=== PATIENT | female | born 1990 | race Caucasian/White ===

== ENCOUNTER 2017-01-11 23:59 | Emergency (ER) | payer BC ==
[~2017-01-11] VITALS: Ht 167.6 cm; Wt 99.8 kg
[~2017-01-11 23:59] MED LIST: ROBITUSSIN-AC 160 ML PO; VIBRAMYCIN100 MG PO
[2017-01-12] MEDS ORDERED: CYCLOBENZAPRINE10 MG PO (01:15)
[2017-01-12] MEDS ORDERED: PREDNISONE50 MG PO (01:15)
== END 2017-01-12 01:42 | disposition home or self-care (01) ==
LOC: ED 23:59
DX: S33.5XXA Sprain of ligaments of lumbar spine, initial encounter (principal); F17.200 Nicotine dependence, unspecified, uncomplicated; X58.XXXA Exposure to other specified factors, initial encounter; Y93.9 Activity, unspecified; Y92.9 Unspecified place or not applicable; Y99.9 Unspecified external cause status

== ENCOUNTER 2017-03-03 22:46 | Emergency (ER) | payer BC ==
[~2017-03-03] VITALS: Ht 167.6 cm; Wt 104.3 kg
[~2017-03-03 22:46] MED LIST changes: +CYCLOBENZAPRINE10 MG PO; +PREDNISONE50 MG PO
[2017-03-04 01:05] LABS: BILIRUBIN NEGATIVE (NEGATIVE); BLOOD NEGATIVE (NEGATIVE); CLARITY SL CLOUDY (CLEAR); COLOR YELLOW (YELLOW); GLUCOSE NEGATIVE (NEGATIVE); KETONE NEGATIVE (NEGATIVE); LEUKO ESTERASE NEGATIVE (NEGATIVE); NITRITE NEGATIVE (NEGATIVE); PROTEIN NEGATIVE (NEGATIVE); UROBILINOGEN 0.2 E.U./dl (0.2-1.0)
[2017-03-04 01:13] LABS: BACTERIA TRACE; EPITHELIAL CELLS 40-45; URINE REFLEX COMMENT NO (NO)
== END 2017-03-04 00:35 | disposition home or self-care (01) ==
LOC: ED 22:46
PROVIDERS: Nurse Practitioner Family
DX: Z00.00 Encounter for general adult medical examination without abnormal findings (principal); F17.200 Nicotine dependence, unspecified, uncomplicated

== ENCOUNTER → 2018-10-24 | Outpatient (CLI) | payer BC | END | disposition home or self-care (01) | LOC: LAB 07:45 | DX: O99.214 Obesity complicating childbirth (principal); Z3A.27 27 weeks gestation of pregnancy ==

== ENCOUNTER 2023-03-04 16:22 | Emergency (ER) | payer OTHER ==
[~2023-03-04] VITALS: Ht 167.6 cm; Wt 108.9 kg
[2023-03-04] MEDS ORDERED: AMOX-CLAV 875-1 EACH PO (16:46)
== END 2023-03-04 17:14 | disposition admitted as inpatient to this hospital (09) ==
LOC: ED 16:22
DX: J02.0 Streptococcal pharyngitis (principal)

== ENCOUNTER 2025-02-24 07:37 | Emergency (ER) | payer SELFPAY ==
[~2025-02-24] VITALS: Ht 167.6 cm; Wt 122.5 kg
[~2025-02-24 07:37] MED LIST changes: +AMOX-CLAV 875-1 EACH PO
[2025-02-24] MEDS ORDERED: Acetaminophen/Oxycodone 5 MG/325 MG TABLET PO ONE (09:30)
[2025-02-24] MEDS ORDERED: Amoxicillin/Clavulanate Pota 875 MG TAB PO ONE (09:30)
[2025-02-24] MEDS ORDERED: AMOX-CLAV 875-1 EACH PO (09:31)
[2025-02-24] MEDS ORDERED: MELOXICAM15 MG PO (09:31)
== END 2025-02-24 10:03 | disposition home or self-care (01) ==
LOC: ED 07:37
DX: K02.9 Dental caries, unspecified (principal); F17.210 Nicotine dependence, cigarettes, uncomplicated; Z79.899 Other long term (current) drug therapy